=== PATIENT | female | born 1945 | race Caucasian/White ===

== ENCOUNTER 2017-07-15 11:54 | Emergency (ER) | payer OTHER ==
[2017-07-15 12:03] VITALS: BP 163/75; PULSE 72; RESP 16; TEMP 98.6; O2SAT 98
[2017-07-15] MEDS ORDERED: ONDANSETRON HCL 4 MG/2 ML VIAL IV PUSH ONE (12:30)
[2017-07-15] MEDS ORDERED: KETOROLAC TROMETHAMINE 30 MG/ML (IVP) VIAL IV PUSH ONE (12:30)
[2017-07-15] MEDS ORDERED: SODIUM CHLOR 0.9% 1000 ML INJ 1,000 ML IV SCH (12:30)
[2017-07-15] MEDS ORDERED: HYDROmorphone HCL PF 1 MG/ML VIAL IV PUSH ONE (12:30)
--- NOTE | 2017-07-15 12:30 | PD ---
HPI Chief Complaint: Pain: Acute or Chronic Time Seen by Provider: 12:17 Travel History International Travel<30 days: No Contact w/Intl Traveler<30days: No Traveled to known affect area: No History of Present Illness HPI This 72-year-old female is complaining of severe back pain. She has had some pain going down the left leg off and on for the past 2 months. Today she was getting out of bed and she returned. She had a sudden severe pain on the right side which caused her to fall to the ground. Since then she is having pain in the right sacroiliac area. It is difficult for her to walk. She has some numbness on the lateral aspect of the thigh. She was dragging her right leg when she tried to walk. She took and oxycodone which did not seem to help her pain PFSH Past Medical History Heart Rhythm Problems: No Cardiac Catheterization: No Cardiovascular Problems: No High Cholesterol: Yes Congestive Heart Failure: No Diabetes: No Hypertension: No (STATES DR PUT HER ON HCTZ FOR BP) Myocardial Infarction: No ?: Not Past Surgical History Abdominal Surgery: Yes (GASTRIC BYPASS) Appendectomy: Yes Coronary Artery Bypass Graft: No Hysterectomy: Yes Tonsillectomy: Yes Social History Alcohol Use: Yes (RUM OCCAISIONALLY- SOCIALLY) Tobacco Use: No Substance Use: No Allergies-Medications (Allergen,Severity, Reaction): Coded Allergies: erythromycin base (Verified Allergy, Mild, RASH, 07/15/17) Reported Meds & Prescriptions Reported Meds & Active Scripts Active Reported Hydrochlorothiazide 12.5 Mg Cap Unknown Dose PO DAILY K-Tab (Potassium Chloride) 8 Meq Tab Unknown Dose PO DIRECTED Amitriptyline (Amitriptyline HCl) 10 Mg Tab Unknown Dose PO HS Lisinopril 2.5 Mg Tab Unknown Dose PO DAILY Review of Systems General / Constitutional: No: Fever, Chills Eyes: No: Diploplia, Blurred Vision HENT: No: Headaches, Vertigo Cardiovascular: No: Palpitations Respiratory: No: Cough, Shortness of Breath Gastrointestinal: No: Vomiting, Diarrhea Genitourinary: No: Urgency, Frequency Musculoskeletal: Positive: Pain Skin: No Rash Neurologic: No: Weakness Psychiatric: No: Anxiety, Depression Physical Exam Narrative GENERAL: Well-developed female she does appear uncomfortable with pain SKIN: Focused skin assessment warm/dry. HEAD: Atraumatic. Normocephalic. EYES: Pupils equal and round. No scleral icterus. No injection or drainage. ENT: No nasal bleeding or discharge. Mucous membranes pink and moist. NECK: Trachea midline. No JVD. GASTROINTESTINAL: Abdomen soft, non-tender, nondistended. Hepatic and splenic margins not palpable. MUSCULOSKELETAL: No obvious deformities. No clubbing. No cyanosis. No edema. There is tenderness in the right sacroiliac area. She has pain with straight leg raising on the right. Sensation is grossly intact. Plantar dorsiflexion of the feet appears intact patella reflexes diminished on the right NEUROLOGICAL: Awake and alert. No obvious cranial nerve deficits. Motor grossly within normal limits. Normal speech. PSYCHIATRIC: Appropriate mood and affect; insight and judgment normal. Data Data Last Documented VS Vital Signs Date Time Temp Pulse Resp B/P (MAP) Pulse Ox O2 Delivery O2 Flow Rate FiO2 07/15/17 14:03 115 16 130/62 (84) 99 Room Air 07/15/17 12:03 98.6 Orders Orders Complete Blood Count With Diff (07/15/17 12:25) Basic Metabolic Panel (Bmp) (07/15/17 12:25) Urinalysis - C+S If Indicated (07/15/17 12:25) Ct Lumb Spine W/O Contrast (07/15/17 12:25) Sodium Chlor 0.9% 1000 Ml Inj (Ns 1000 M (07/15/17 12:30) Ketorolac Inj (Toradol Inj) (07/15/17 12:30) Ondansetron Inj (Zofran Inj) (07/15/17 12:30) Hydromorphone Pf Inj (Dilaudid Pf Inj) (07/15/17 12:30) Hydromorphone Pf Inj (Dilaudid Pf Inj) (07/15/17 13:00) Labs Laboratory Tests Test 07/15/17 12:40 White Blood Count 6.0 TH/MM3 Red Blood Count 4.13 MIL/MM3 Hemoglobin 11.8 GM/DL Hematocrit 36.2 % Mean Corpuscular Volume 87.4 FL Mean Corpuscular Hemoglobin 28.5 PG Mean Corpuscular Hemoglobin Concent 32.6 % Red Cell Distribution Width 12.7 % Platelet Count 298 TH/MM3 Mean Platelet Volume 8.5 FL Neutrophils (%) (Auto) 58.9 % Lymphocytes (%) (Auto) 29.6 % Monocytes (%) (Auto) 6.8 % Eosinophils (%) (Auto) 3.6 % Basophils (%) (Auto) 1.1 % Neutrophils # (Auto) 3.5 TH/MM3 Lymphocytes # (Auto) 1.8 TH/MM3 Monocytes # (Auto) 0.4 TH/MM3 Eosinophils # (Auto) 0.2 TH/MM3 Basophils # (Auto) 0.1 TH/MM3 CBC Comment DIFF FINAL Differential Comment Blood Urea Nitrogen 18 MG/DL Creatinine 0.82 MG/DL Random Glucose 98 MG/DL Calcium Level 9.2 MG/DL Sodium Level 137 MEQ/L Potassium Level 3.8 MEQ/L Chloride Level 102 MEQ/L Carbon Dioxide Level 28.1 MEQ/L Anion Gap 7 MEQ/L Estimat Glomerular Filtration Rate 68 ML/MIN MDM Medical Decision Making Medical Screen Exam Complete: Yes Emergency Medical Condition: Yes Medical Record Reviewed: Yes Differential Diagnosis Differential includes HNP, fracture, Narrative Course CT of the back was obtained and shows extensive degenerative changes. There are multiple disc bulges Diagnosis Primary Impression: Degenerative joint disease of low back Scripts Hydrocodone-Acetaminophen (Horace) 7.5-325 mg Tab 1 TAB PO Q4H Y for PAIN, #12 TAB 0 Refills Prov: Hayder Ambrose MD 07/15/17 Cyclobenzaprine (Flexeril) 10 Mg Tab 10 MG PO TID for Muscle Spasm, #30 TAB 0 Refills Prov: Hayder Ambrose MD 07/15/17 Disposition: 01 DISCHARGE HOME Condition: Stable Hayder Ambrose MD July 15, 2017 12:30
[2017-07-15] MEDS ORDERED: LISI2.5T3 PO (12:34)
[2017-07-15] MEDS ORDERED: AMIT10TA6 PO (12:34)
[2017-07-15] MEDS ORDERED: POTA1TAB77 PO (12:34)
[2017-07-15] MEDS ORDERED: HYDR12.57 PO (12:34)
[2017-07-15 12:55] LABS: AUTOMATED NEUTROPHIL # 3.5 TH/MM3 (1.8-7.7); BASOPHIL # 0.1 TH/MM3 (0-0.2); BASOPHIL % 1.1 % (0.0-2.0); EOSINOPHIL # 0.2 TH/MM3 (0-0.4); EOSINOPHIL % 3.6 % (0.0-4.0); HEMATOCRIT 36.2 % (35.0-46.0); HEMOGLOBIN 11.8 GM/DL (11.6-15.3); LYMPH % 29.6 % (9.0-44.0); LYMPHOCYTE # 1.8 TH/MM3 (1.0-4.8); MEAN CELL VOLUME 87.4 FL (80.0-100.0); MEAN CORPUSCULAR HEMOGLOBIN 28.5 PG (27.0-34.0); MEAN CORPUSCULAR HGB CONC 32.6 % (32.0-36.0); MEAN PLATELET VOLUME 8.5 FL (7.0-11.0); MONO % 6.8 % (0.0-8.0); MONOCYTE # 0.4 TH/MM3 (0-0.9); NEUT % 58.9 % (16.0-70.0); PLATELET COUNT 298 TH/MM3 (150-450); RED BLOOD COUNT 4.13 MIL/MM3 (4.00-5.30); RED CELL DISTRIBUTION WIDTH 12.7 % (11.6-17.2)
[2017-07-15 12:58] LABS: CALCIUM 9.2 MG/DL (8.5-10.1)
[2017-07-15 12:59] LABS: BICARBONATE 28.1 MEQ/L (21.0-32.0)
[2017-07-15] MEDS ORDERED: HYDROmorphone HCL PF 2 MG/ML VIAL IV ONE (13:00)
[2017-07-15 13:02] LABS: CREATININE 0.82 MG/DL (0.50-1.00)
[2017-07-15 14:03] VITALS: BP 130/62; PULSE 115; RESP 16; O2SAT 99
--- NOTE | 2017-07-15 15:42 | RADRPT ---
EXAM DATE/TIME: 07/15/2017 13:34 [facility] COMPARISON: No previous studies available for comparison. INDICATIONS : Right low back pain with radiculopathy down right leg. RADIATION DOSE: 40.01 CTDIvol (mGy) MEDICAL HISTORY : Hypertension. SURGICAL HISTORY : Hysterectomy. Appendectomy.Gastric bypass. Bladder sling. ENCOUNTER: Initial ACUITY: 1 day PAIN SCALE: 10/10 LOCATION: Right low back TECHNIQUE: Volumetric scanning of the lumbar spine was performed. Multiplanar reconstructions in the sagittal, coronal and oblique axial planes were performed. Using automated exposure control and adjustment of the mA and/or kV according to patient size, radiation dose was kept as low as reasonably achievable t o obtain optimal diagnostic quality images. DICOM format image data is available electronically for review and comparison. FINDINGS: Sagittal and coronal reformats are provided. The reformatted images demonstrate degenerated disc thro ughout the lumbar spine most notably at L3/4 and L4/5. No destructive lesion is seen. No acute fractu re is identified. There is minimal S. shaped scoliotic change within the lumbar spine. T12-L1: The thecal sac has a normal diameter. No evidence of disc bulge or protrusion. The neural foramina are patent bilaterally. L1-L2: The thecal space and neural foramina are adequate. There is moderate facet arthritis bilaterally. The re is no significant neuroforaminal stenosis or spinal stenosis identified. L2-L3: There is a degenerated disc with a broad-based disc bulge. This effaces the ventral thecal sac. There is moderate facet arthritis bilaterally. The residual thecal space and foramina appear adequate. L3-L4: There is a degenerated disc with central and right-sided disc protrusion. This effaces the ventral th ecal sac. There is mild encroachment on the lateral recess and base of the foramina on the right. The re is moderate facet arthritis bilaterally. The residual thecal space is adequate. The foramina on th e left is adequate. L4-L5: There is a degenerated disc with broad-based disc bulge and diffuse osteophytic ridging. This effaces the ventral thecal sac. There is moderate facet arthritis bilaterally. There is degenerative facet h ypertrophy. These changes result in moderate foraminal narrowing on the left. There is mild foraminal narrowing on the right. The residual thecal space appears narrowed but adequate. L5-S1: There is a small broad-based disc bulge. The residual thecal space appears adequate. The foramina are adequate. There is moderate facet arthritis bilaterally. CONCLUSION: 1. Degenerative changes of the lumbar spine most notably at L2/3, L3/4 and L4/5. The individual level s are dictated in detail above. 2. No acute compression fracture identified. Jamie Weathers MD on July 15, 2017 at 15:34 Board Certified Radiologist. This report was verified electronically.
[2017-07-15 15:54] LABS: BILIRUBIN, URINE NEG (NEG); BLOOD, URINE NEG (NEG); GLUCOSE,URINE NEG (NEG); KETONE, URINE NEG (NEG); NITRITE,URINE NEG (NEG); PH, URINE 5.5 (5.0-8.5); URINE COLOR YELLOW (YELLW/STRAW); URINE LEUKOCYTE ESTERASE TRACE (NEG)
[2017-07-15] MEDS ORDERED: HYDR-3288 PO (15:58)
[2017-07-15] MEDS ORDERED: CYCL10TA PO (15:58)
[2017-07-15 16:07] LABS: RBC, URINE 0-3 /hpf (0-3); SQUAMOUS EPITHELIAL CELL URINE 0-5 /hpf (0-5); WBC, URINE 0-2 /hpf (0-5)
[2017-07-15 16:13] VITALS: BP 142/62
== END 2017-07-15 16:14 | disposition home or self-care (01) ==
LOC: PHED 11:54
DX: M51.36 Other intervertebral disc degeneration, lumbar region (principal); I10 Essential (primary) hypertension; Z98.84 Bariatric surgery status; M54.5 Low back pain
CPT/HCPCS: 72131; 80048; 81001; 85025; 96361; 96374; 96375; 99284; J1170; J1885; J2405; J7030